=== PATIENT | female | born 1955 | race Caucasian/White ===

== ENCOUNTER 2022-01-28 10:16 | Emergency (ER) | payer MEDICARE, OTHER ==
[2022-01-28] MEDS: Ketorolac 30 MG/ML SDV IM ONE ×2 (11:25→12:06)
== END 2022-01-28 12:13 | disposition home or self-care (01) ==
LOC: DL.ED 10:16
DX: M25.512 Pain in left shoulder (principal); Z88.0 Allergy status to penicillin; Z79.82 Long term (current) use of aspirin; Z79.899 Other long term (current) drug therapy
CPT/HCPCS: 73030; 73060; 96372; 99283; J1885; 99282